=== PATIENT | male | born 1935 | race Caucasian/White ===

== ENCOUNTER → 2017-03-13 | Outpatient (CLI) | payer OTHER ==
[~2017-03-13] MED LIST: ALLOPURINOL300 MG PO; ASPIRIN81 M1 PO; FENOFIBRATE160 MG PO; HYDROCODON-ACE1 EACH PO; HYTRIN5 M1 PO; KRILL OIL 1,001 EACH PO; LISINOPRIL20 MG PO; METFORMIN HCL500 M2 PO; PRAVACHOL80 MG PO
--- NOTE | ~2017-03-13 | MR113 ---
[facility] A Service of [facility] & [facility] RADIOLOGY TEXT RESULTS PATIENT: HARIKA KAUR LOCATION: [facility] : [birth year] UNIT #: [id number] AGE: [address]: MCKENNA RICCI MD (INT MED) SEX: M ORDER DR: [id number] [address] [address] [id number] O MR#: [id number] Acc #: [id number] NAME: HARIKA KAUR : 1935 SEX: M STUDY DATE/TIME: 03/13/2017 10:24 UNIT: [facility] ROOM: STUDY DESCRIPTION: MR Lumbar Wo Contrast Attending Physician: Mckenna Ricci M.D. Referring Physician: Mckenna Ricci M.D. Ordering Physician: Mckenna Ricci M.D. Primary Care Physician: Mckenna Ricci M.D. MRI CENTER REPORT This report is preliminary unless electronic signature is present. EXAM MRI of the lumbar spine without contrast, dated 03/13/2017. COMPARISON Plain films lumbar spine dated 06/23/2014. HISTORY Low back pain with bilateral radiculopathy for 2 to 3 months. FINDINGS Multisequence, multiplanar imaging of the lumbar spine was obtained without contrast. Vertebral body heights and alignment are preserved. Large fatty signal lesion is noted in the L1 vertebral body measuring 2.8 x 2.6 x 2.0 cm. No associated pathological fracture or extraosseous soft tissue components. Conus terminates at L1. Signal of conus and cauda equina are within normal limits. Degenerative disc disease is at multiple levels. Edematous endplate changes are at T12-L1. Conus terminates at L1. Signal of conus and cauda equina are within normal limits. Pre and paravertebral soft tissues do not demonstrate any significant abnormality. T12-L1: Disc osteophyte complex with mild canal stenosis. Mild left facet hypertrophic change without neural foraminal narrowing. L1-2: Concentric disc bulge with central annular fissure. Mild left facet hypertrophic change. No canal stenosis or neural foraminal narrowing. L2-3: Concentric disc bulge with small left central protrusion which extends towards the left extraforaminal region. Borderline-sized canal. No significant neural foraminal narrowing. Minimal bilateral facet changes. L3-4: Disc osteophyte complex with minimal left facet hypertrophic STS. [facility] A Service of [facility] & [facility] RADIOLOGY TEXT RESULTS PATIENT: HARIKA KAUR LOCATION: [facility] : [birth year] UNIT #: [id number] AGE: [address]: MCKENNA RICCI MD (INT MED) SEX: M ORDER DR: change. There is qjig-[id number] canal stenosis, mild left lateral recess stenosis and mild bilateral neural foraminal narrowing particularly in the left. There is increased T2 signal noted within the L3-4 interspinous ligament without any adjacent bone edema. L4-5: Disc osteophyte complex with severe right and [id number] left facet hypertrophic change. Mild canal stenosis is seen with mild bilateral lateral recess stenosis, particularly in the right. Synovial soft tissue/spur is noted in the anteromedial aspect of the right facet joint contributing to the right lateral recess stenosis and right neural foraminal narrowing. There is mild bilateral neural foraminal narrowing, worse on the right. L5-S1: Disc osteophyte complex with superimposed central protrusion. There is a left foraminal to extraforaminal broad-based protrusion and right foraminal suspicious small disc protrusion/extrusion based on the axial images and (series 6, image 6 and 7). No obvious extrusion is seen on the sagittal images. Severe bilateral facet hypertrophic changes are noted without any significant canal stenosis. Mild left lateral recess stenosis is seen with mild bilateral neural foraminal narrowing. IMPRESSION 1. Degenerative changes are noted at multiple levels of the lumbar spine, worse at L4-5, L3-4, as described above. Canal stenosis and neural foraminal narrowing are seen. 2. In the right foraminal region of L5-S1, the axial images demonstrate a small soft tissue anterior to the exiting right L5 nerve root. It is suspicious for a protrusion/small extrusion. It is, however, not well correlated in the sagittal images. 3. There is mild increased STIR signal noted within the L3-4 interspinous ligament without any adjacent bone edema. It could represent benign inflammatory change like Baastrup' disease. 4. There is a fatty signal lesion noted within L1 vertebral body, probably a benign lesion like hemangioma based on statistics. Dictated by... Kaycee Whelan M.D. THIS IS AN ELECTRONICALLY VERIFIED REPORT Kaycee Whelan M.D. at 03/14/2017 5:30 PM CPR/mary TD: 03/13/2017 22:41 JOB #: [id number] MRI CENTER REPORT Page 1 of 1
== END | disposition home or self-care (01) ==
LOC: SMRI 09:42
DX: M54.5 Low back pain (principal); M47.896 Other spondylosis, lumbar region; M48.06 Spinal stenosis, lumbar region; M89.9 Disorder of bone, unspecified
CPT/HCPCS: 72148

== ENCOUNTER → 2017-03-15 | Outpatient (CLI) | payer OTHER ==
--- NOTE | ~2017-03-15 | US136 ---
[facility] A Service of [facility] & [facility] RADIOLOGY TEXT RESULTS PATIENT: HARIKA KAUR LOCATION: [facility] : 31 UNIT #: [id number] AGE: [address]: MCKENNA RICCI MD (INT MED) SEX: M ORDER DR: [id number] [facility] [address]. [place], [place] [address] [id number] O MR#: [id number] Acc #: [id number] NAME: HARIKA KAUR : 1935 SEX: M STUDY DATE/TIME: 03/15/2017 13:20 UNIT: [facility] ROOM: STUDY DESCRIPTION: U/L [facility] [employer] Bil Attending Physician: Mckenna Ricci M.D. Referring Physician: Mckenna Ricci M.D. Ordering Physician: Mckenna Can Sliderjewell Ricci Primary Care Physician: Mckenna Ricci M.D. MEDICAL IMAGING REPORT This report is preliminary unless electronic signature is present EXAM Ankle brachial indices date of examination 03/15/2017 HISTORY Claudication FINDINGS The right brachial artery pressure is 126. The right dorsalis pedis pressure is 133, with an ankle brachial index of 1.03. The right posterior tibial pressure is 169, with an ankle to brachial index of 1.31. The right digital pressure is 114 with a toe index of 0.88. The left brachial artery pressure is 129. The left dorsalis pedis pressure is 114, with an ankle to brachial index of 0.88. The left posterior tibial pressure is 146, with an ankle to brachial index of 1.13. The left digital pressure is 85, with a toe index of 0.66. Ankle waveforms on the left and right demonstrate a sharp upstroke and systolic peak with a dicrotic notch. The right posterior tibial and dorsalis pedis waveforms are triphasic. The left posterior tibial waveform is triphasic, whereas the dorsalis pedis waveform appears biphasic. IMPRESSION 1. The right SHERON is 1.31, with no evidence of arterial insufficiency. 2. The left SHERON is 1.13, with no evidence of arterial insufficiency. Dictated by... STS. [facility] A Service of [facility] & [facility] / [facility] RADIOLOGY TEXT RESULTS PATIENT: HARIKA KAUR LOCATION: [facility] : 31 UNIT #: [id number] AGE: [address]: MCKENNA RICCI MD (INT MED) SEX: M ORDER DR: Manjit Camarillo M.D. THIS IS AN ELECTRONICALLY VERIFIED REPORT Manjit Camarillo M.D. at 03/16/2017 7:46 AM NEY/melvin TD: 03/16/2017 05:38 JOB #: [id number] MEDICAL IMAGING REPORT Page 1 of 1 COPY
== END | disposition home or self-care (01) ==
LOC: CNIV 13:06
DX: I73.9 Peripheral vascular disease, unspecified (principal)
CPT/HCPCS: 93922